=== PATIENT | male | born 1975 ===

== ENCOUNTER 2019-01-19 14:36 | Emergency (ER) | payer OTHER ==
[~2019-01-19] VITALS: Ht 172.7 cm; Wt 112.5 kg
[2019-01-19] MEDS ORDERED: VASOTEC5 MG (14:44)
[2019-01-19] MEDS ORDERED: NIFE60TA3 (14:44)
[2019-01-19] MEDS ORDERED: FORTAMET1000 MG (14:44)
== END 2019-01-19 21:19 | disposition home or self-care (01) ==
LOC: ER 14:36
DX: K52.9 Noninfective gastroenteritis and colitis, unspecified (principal)